=== PATIENT | female | born 1985 | race Caucasian/White ===

== ENCOUNTER 2023-07-26 12:51 | Day surgery (SDC) | payer OTHER ==
[~2023-07-26 12:51] MED LIST: Midazolam 1 MG/ML 2 ML SDV ONE; Propofol 200 MG/20 ML SDV ONE
[2023-07-26] MEDS ORDERED: Sodium Chloride 0.9% 10 ML Syringe FLUSH PRN (13:00)
[2023-07-26] MEDS: Lactated Ringers 1,000 ML IV SCH (14:12)
[2023-07-26] MEDS ORDERED: Ondansetron 4 MG/2 ML SDV ONE (14:34)
== END 2023-07-26 15:32 | disposition home or self-care (01) ==
LOC: LL.SDS 12:51
PROVIDERS: ATTEND Surgery
DX: K52.832 Lymphocytic colitis (principal); K21.9 Gastro-esophageal reflux disease without esophagitis; Z79.899 Other long term (current) drug therapy; Z88.0 Allergy status to penicillin
CPT/HCPCS: 00811; J2250; J2405; J2704; J7120